=== PATIENT | male | born 1955 | race Caucasian/White ===

== ENCOUNTER 2023-01-15 10:23 | Outpatient (CLI) | payer MEDICARE, SELFPAY ==
[2023-01-15 15:25] LABS: Alanine Aminotransferase 30 U/L (6-50); Albumin Level 4.5 g/dL (3.5-5.1); Alkaline Phosphatase 53 U/L (38-126); Anion Gap 6 mmol/L (8-16); Aspartate Amino Transferase 45 U/L (17-59); Bilirubin,Total 1.3 mg/dL (0.2-1.3); Blood Urea Nitrogen 19 mg/dL (9-20); Calcium 8.9 mg/dL (8.4-10.2); Carbon Dioxide 30 mmol/L (22-30); Chloride 104 mmol/L (98-107); Estimated Glomerular Filt Rate > 60; Glucose 83 mg/dL (65-110); Potassium 3.8 mmol/L (3.4-5.0); Sodium 140 mmol/L (137-145)
== END 2023-01-15 10:24 | disposition home or self-care (01) ==
LOC: ANHGOSHLAB 10:28
PROVIDERS: PCP Family Medicine; Visit Provider Family Medicine
DX: E78.5 Hyperlipidemia, unspecified (principal); I10 Essential (primary) hypertension; Z79.899 Other long term (current) drug therapy
CPT/HCPCS: 36415; 80053

== ENCOUNTER → 2023-06-24 10:19 | Outpatient (CLI) | payer MEDICARE, SELFPAY ==
--- NOTE | ~2023-06-24 | XR_ITS ---
Right Shoulder Technique: AP and axillary views were obtained. Clinical History: Pain Findings: No fracture or dislocation is seen. Osseous alignment is anatomic. The glenohumeral and acr omioclavicular joint spaces are preserved. Soft tissues are unremarkable. Impression: Unremarkable right shoulder radiographs. Reviewed, dictated and finalized at [facility]. ATE BANKER Impression: Unremarkable right shoulder radiographs.
== END ==
PROVIDERS: PCP Family Medicine; Visit Provider Family Medicine
DX: M25.511 Pain in right shoulder (principal); G89.29 Other chronic pain
CPT/HCPCS: 73030

== ENCOUNTER 2024-09-02 11:39 | Outpatient (CLI) | payer MEDICARE, OTHER, SELFPAY ==
--- OUTSIDE RECORDS SUMMARY | 2024-09-02 13:10 | XMS_ITS | Encounter Summary ---
Author Organization [facility] Address [address] [place] [address] Phone Care Team Providers Care Immigration Services Officer Name Role Phone Teodora Grewal MD Primary Care Provider +1- [phone] Encounter Details Date Type Department Care Team (Latest Contact Info) Description 02/26/2023 Orders Only [facility] Scanning, Provider Social History Tobacco Use Types Packs/Day Years Used Date Smoking Tobacco: Never Smokeless Tobacco: Never Alcohol Use Standard Drinks/Week Comments Yes 0 (1 standard drink = 0.6 oz pur e alcohol) rare Sex and Gender Information Value Date Recorded Sex Assigned at Not on file 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 Gender Identity Not on file Sexual Orientation Not on file documented as of this encounter Plan of Treatment Not on file documented as of this encounter Procedures Procedure Name Priority Date/Time Associated Diagnosis Comments SCAN - LABS 02/26/2023 documented in this encounter Results * SCAN - LABS (02/26/2023) us Provider Scanning Final Result documented in this encounter Visit Diagnoses Not on filedocumented in this encounter Care Teams Immigration Services Officer Relationship Specialty Start Date End Date Teodora Grewal MD PCP - General Family Practice 03/17/18 documented as of this encounter
--- OUTSIDE RECORDS SUMMARY | 2024-09-02 13:10 | XMS_ITS | Encounter Summary ---
Author Organization [facility] Address [address] [place] [address] Phone Care Team Providers Care Employment Director Name Role Phone Teodora Grewal MD Primary Care Provider +1- [phone] Encounter Details Date Type Department Care Team (Latest Contact Info) Description 01/16/2023 Orders Only [facility] Scanning, Provider Social History Tobacco Use Types Packs/Day Years Used Date Smoking Tobacco: Never Smokeless Tobacco: Never Alcohol Use Standard Drinks/Week Comments Yes 0 (1 standard drink = 0.6 oz pur e alcohol) rare Sex and Gender Information Value Date Recorded Sex Assigned at Not on file 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
--- OUTSIDE RECORDS SUMMARY | 2024-09-02 13:10 | XMS_ITS | Encounter Summary ---
Author Organization [facility] Address [address] [place] [address] Phone Care Team Providers Care Devulcanizer Operator Name Role Phone Teodora Grewal MD Primary Care Provider +1- [phone] Encounter Details Date Type Department Care Team (Latest Contact Info) Description 04/27/2024 Orders Only [facility] Scanning, Provider Social History Tobacco Use Types Packs/Day Years Used Date Smoking Tobacco: Never Smokeless Tobacco: Never Alcohol Use Standard Drinks/Week Comments Yes 0 (1 standard drink = 0.6 oz pur e alcohol) rare Sex and Gender Information Value Date Recorded Sex Assigned at Not on file 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
--- OUTSIDE RECORDS SUMMARY | 2024-09-02 13:10 | XMS_ITS | Encounter Summary ---
Author Organization [facility] Address [address] [place] [address] Phone Care Team Providers Care Door Slinger Name Role Phone Teodora Grewal MD Primary Care Provider +1- [phone] Encounter Details Date Type Department Care Team (Latest Contact Info) Description 04/27/2020 Orders Only [facility] Scanning, Provider Social History Tobacco Use Types Packs/Day Years Used Date Smoking Tobacco: Never Smokeless Tobacco: Never Alcohol Use Standard Drinks/Week Comments Yes 0 (1 standard drink = 0.6 oz pur e alcohol) rare Sex and Gender Information Value Date Recorded Sex Assigned at Not on file 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
--- OUTSIDE RECORDS SUMMARY | 2024-09-02 13:10 | XMS_ITS | Encounter Summary ---
Author Organization [facility] Address [address] [place] [address] Phone Care Team Providers Care Sql Ssrs Developer Name Role Phone Teodora Grewal MD Primary Care Provider +1- [phone] Encounter Details Date Type Department Care Team (Latest Contact Info) Description 04/06/2020 Orders Only [facility] Scanning, Provider Social History Tobacco Use Types Packs/Day Years Used Date Smoking Tobacco: Never Smokeless Tobacco: Never Alcohol Use Standard Drinks/Week Comments Yes 0 (1 standard drink = 0.6 oz pur e alcohol) rare Sex and Gender Information Value Date Recorded Sex Assigned at Not on file 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
--- OUTSIDE RECORDS SUMMARY | 2024-09-02 13:10 | XMS_ITS | Patient Health Summary ---
Author Organization [facility] Address [address] [place] [address] Care Team Providers Care Truck Dispatcher Name Role Phone Unavailable Primary Care Provider Unavailabl e Note from [facility] [place] [facility] [place]non-owned Affiliates and Associated Physician Practices is amultiple site organization consisting of ambulatory clinics and hospital sitesin [place], [place], [place] and [place]. This disclosure is being madepursuant to the Care Everywhere program and may not contain all information available regarding this patient. Last updated 18.[facility] Social History Tobacco Use Types Packs/Day Years Used Date Smoking Tobacco: Never Assessed Sex and Gender Information Value Date Recorded Sex Assigned at Not on file Gender Identity Not on file Sexual Orientation Not on file Procedures * DERMATOPATHOLOGY(Performed 04/20/2020) Results * DERMATOPATHOLOGY (04/20/2020 12:00 AM CDT) Case Report Dermatopathology Report ? Case: [id number] ? Authorizing Provider: ??Gary Duke MD ?Collected: ? 04/20/2020 12:00 AM ? Ordering Location: ? [facility] ?Received: ?04/21/2020 07:43 AM ? Pathologist: ? Gerardo Byrd MD ? Specimen: ?Skin, right buttock ? 0 8:28 AM [facility]ORY Amended Report Site change from right buttock to right joel anal 0 8:28 AM [facility] DERMATOPATHOLOGY [facility]ORATORY Final Diagnosis Specimen A. SKIN, right joel anal NEVUS LIPOMATOSUS SUPERFICIALIS (D17.30) 0 8:28 AM [facility] DERMATOPATHOLOGY LABORATORY Amendment electronically signed by Gerardo Byrd MD on 05/09/2020 at 8:28 AM Amendment electronically signed by Gerardo Byrd MD on 04/26/2020 at 2:08 PM Clinical History R/O IFEP. 0 8:28 AM [facility] DERMATOPATHOLOGY LABORATORY Gross Description Specimen A: Received is one formalin filled container labeled with the patient's name and designated right joel anal. The specimen consists of a [id number] piece of skin. The specimen is serially sectioned and a industrial sales representative section is submitted in cassettes 1-2. Jar 1. 0 8:28 AM [facility] DERMATOPATHOLOGY LABORATORY Microscopic Description Specimen A. SKIN, right joel anal: There is a gently folded epidermis surrounding a connective tissue core in which fat and collagen are intermingled. 0 8:28 AM [facility] DERMATOPATHOLOGY LABORATORY Disclaimer An external and internal positive and negative controls are appropriate for the histochemical, immunohistochemical and immunofluorescence stain(s) in this case (if any), except where stated explicitly. The performance characteristics of the stain(s) cited in this report were developed and its performance characteristic determined by the Dermatopathology Laboratory at [facility], directed by Dr. Simeon Byrd. These tests need not be, and therefore are not, approved by the [place] Food and Drug Administration. The tests are used for clinical purposes. Billing Codes Specimen Charges Stain Charges 27183 1 0 8:28 AM [facility] DERMATOPATHOLOGY LABORATORY Embedded Images 0 8:28 AM [facility] DERMATOPATHOLOGY LABORATORY Pathology/Cytolog y TISSUE SPECIMEN FROM SKIN / Unknown 04/20/2020 04/21/2020 7:43 AM CDT Gary Duke MD LAB - PATHOLOGY/CYTO LOGY ORDERABLES DERMATOPATHOLOGY LABORATORY [facility] - Department of Dermatology [facility] Medicine [address] [place] [address], [address] [phone]
--- OUTSIDE RECORDS SUMMARY | 2024-09-02 13:10 | XMS_ITS | Encounter Summary ---
Author Organization [facility] Address [address] [place] [address] Phone Care Team Providers Care Proposal Review Analyst Name Role Phone Teodora Grewal MD Primary Care Provider +1- [phone] Encounter Details Date Type Department Care Team (Latest Contact Info) Description 11/23/2019 Orders Only [facility] Scanning, Provider Social History Tobacco Use Types Packs/Day Years Used Date Smoking Tobacco: Never Smokeless Tobacco: Never Alcohol Use Standard Drinks/Week Comments Yes 0 (1 standard drink = 0.6 oz pur e alcohol) rare Sex and Gender Information Value Date Recorded Sex Assigned at Not on file 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 Gender Identity Not on file Sexual Orientation Not on file documented as of this encounter Plan of Treatment Not on file documented as of this encounter Procedures Procedure Name Priority Date/Time Associated Diagnosis Comments SCAN - LABS 11/23/2019 documented in this encounter Results * SCAN - LABS (11/23/2019) us Provider Scanning Final Result documented in this encounter Visit Diagnoses Not on filedocumented in this encounter Care Teams Proposal Review Analyst Relationship Specialty Start Date End Date Teodora Grewal MD PCP - General Family Practice 03/17/18 documented as of this encounter
--- OUTSIDE RECORDS SUMMARY | 2024-09-02 13:10 | XMS_ITS | Encounter Summary ---
Author Organization [facility] Address [address] [place] [address] Phone Care Team Providers Care Business System Consultant Name Role Phone Teodora Grewal MD Primary Care Provider +1- [phone] Encounter Details Date Type Department Care Team (Latest Contact Info) Description 02/24/2023 Orders Only [facility] Scanning, Provider Social History Tobacco Use Types Packs/Day Years Used Date Smoking Tobacco: Never Smokeless Tobacco: Never Alcohol Use Standard Drinks/Week Comments Yes 0 (1 standard drink = 0.6 oz pur e alcohol) rare Sex and Gender Information Value Date Recorded Sex Assigned at Not on file 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 Gender Identity Not on file Sexual Orientation Not on file documented as of this encounter Plan of Treatment Not on file documented as of this encounter Procedures Procedure Name Priority Date/Time Associated Diagnosis Comments SCAN - LABS 02/24/2023 documented in this encounter Results * SCAN - LABS (02/24/2023) us Provider Scanning Final Result documented in this encounter Visit Diagnoses Not on filedocumented in this encounter Care Teams Business System Consultant Relationship Specialty Start Date End Date Teodora Grewal MD PCP - General Family Practice 03/17/18 documented as of this encounter
--- OUTSIDE RECORDS SUMMARY | 2024-09-02 13:10 | XMS_ITS | Encounter Summary ---
Author Organization [facility] Address [address] [place] [address] Care Team Providers Care Security Consultant Name Role Phone Unavailable Primary Care Provider Unavailabl e Encounter Details Date Type Department Care Team (Late st Contact Info) Description 04/21/2020 Lab Requisition [facility] [address] [place] [id number] Gary Duke MD [address] [place] [address] Social History Tobacco Use Types Packs/Day Years Used Date Smoking Tobacco: Never Assessed Sex and Gender Information Value Date Recorded Sex Assigned at Not on file Gender Identity Not on file Sexual Orientation Not on file documented as of this encounter Plan of Treatment Not on file documented as of this encounter Procedures Procedure Name Priority Date/Time Associated Diagnosis Comments DERMATOPATHOLOGY Routine 04/20/2020 12:0 0 AM CDT documented in this encounter Results * DERMATOPATHOLOGY (04/20/2020 12:00 AM CDT) Case Report Dermatopathology Report ? Case: [id number] ? Authorizing Provider: ??Gary Duke MD ?Collected: ? 04/20/2020 12:00 AM ? Ordering Location: ? [facility] ?Received: ?04/21/2020 07:43 AM ? Pathologist: ? Gerardo Byrd MD ? Specimen: ?Skin, right buttock ? 0 8:28 AM [facility] DERMATOPATHOLOGY LABORATORY Amended Report Site change from right buttock to right joel anal 0 8:28 AM [facility] DERMATOPATHOLOGY LABORATORY Final Diagnosis Specimen A. SKIN, right joel anal NEVUS LIPOMATOSUS SUPERFICIALIS (D17.30) 0 8:28 AM [facility] DERMATOPATHOLOGY LABORATORY Amendment electronically signed by Gerardo Byrd MD on 05/09/2020 at 8:28 AM Amendment electronically signed by Gerardo Byrd MD on 04/26/2020 at 2:08 PM Clinical History R/O IFEP. 0 8:28 AM [facility] DERMATOPATHOLOGY LABORATORY Gross Description Specimen A: Received is one formalin filled container labeled with the patient's name and designated right joel anal. The specimen consists of a [id number] piece of skin. The specimen is serially sectioned and a consumer sales representative section is submitted in cassettes 1-2. Jar 1. 0 8:28 AM [facility] DERMATOPATHOLOGY LABORATORY Microscopic Description Specimen A. SKIN, right joel anal: There is a gently folded epidermis surrounding a connective tissue core in which fat and collagen are intermingled. 0 8:28 AM [facility] DERMATOPATHOLOGY LABORATORY Disclaimer An external and internal positive and negative controls are appropriate for the histochemical, immunohistochemical and immunofluorescence stain(s) in this case (if any), except where stated explicitly. The performance characteristics of the stain(s) cited in this report were developed and its performance characteristic determined by the Dermatopathology Laboratory at [facility], directed by Dr. Simeon yBrd. These tests need not be, and therefore are not, approved by the [place] Food and Drug Administration. The tests are used for clinical purposes. Billing Codes Specimen Charges Stain Charges 12543 1 0 8:28 AM [facility] DERMATOPATHOLOGY LABORATORY Embedded Images 0 8:28 AM [facility] DERMATOPATHOLOGY LABORATORY Pathology/Cytolog y TISSUE SPECIMEN FROM SKIN / Unknown 04/20/2020 04/21/2020 7:43 AM CDT Gary Duke MD LAB - PATHOLOGY/CYTO LOGY ORDERABLES DERMATOPATHOLOGY LABORATORY [facility] - Department of Dermatology [address], [address] [phone] documented in this encounter Visit Diagnoses Not on filedocumented in this encounter
--- OUTSIDE RECORDS SUMMARY | 2024-09-02 13:10 | XMS_ITS | Encounter Summary ---
Author Organization [facility] Address [address] [place] [address] Phone Care Team Providers Care Hammersmith Helper Name Role Phone Teodora Grewal MD Primary Care Provider +1- [phone] Encounter Details Date Type Department Care Team (Latest Contact Info) Description 03/02/2020 Orders Only [facility] Scanning, Provider Social History Tobacco Use Types Packs/Day Years Used Date Smoking Tobacco: Never Smokeless Tobacco: Never Alcohol Use Standard Drinks/Week Comments Yes 0 (1 standard drink = 0.6 oz pur e alcohol) rare Sex and Gender Information Value Date Recorded Sex Assigned at Not on file 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
--- OUTSIDE RECORDS SUMMARY | 2024-09-02 13:10 | XMS_ITS | Encounter Summary ---
Author Organization [facility] Address [address] [place] [address] Phone Care Team Providers Care Press Operator Printing Name Role Phone Teodora Grewal MD Primary Care Provider +1- [phone] Encounter Details Date Type Department Care Team (Latest Contact Info) Description 05/16/2020 Orders Only [facility] Scanning, Provider Social History Tobacco Use Types Packs/Day Years Used Date Smoking Tobacco: Never Smokeless Tobacco: Never Alcohol Use Standard Drinks/Week Comments Yes 0 (1 standard drink = 0.6 oz pur e alcohol) rare Sex and Gender Information Value Date Recorded Sex Assigned at Not on file 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 Gender Identity Not on file Sexual Orientation Not on file documented as of this encounter Plan of Treatment Not on file documented as of this encounter Procedures Procedure Name Priority Date/Time Associated Diagnosis Comments SCAN - LABS 05/16/2020 documented in this encounter Results * SCAN - LABS (05/16/2020) us Provider Scanning Final Result documented in this encounter Visit Diagnoses Not on filedocumented in this encounter Care Teams Press Operator Printing Relationship Specialty Start Date End Date Teodora Grewal MD PCP - General Family Practice 03/17/18 documented as of this encounter
--- OUTSIDE RECORDS SUMMARY | 2024-09-02 13:11 | XMS_ITS | Encounter Summary ---
Author Organization [facility] Address [address] [place] [address] Phone Care Team Providers Care Stone Trimmer Name Role Phone Teodora Grewal MD Primary Care Provider +1- [phone] Encounter Details Date Type Department Care Team (Latest Contact Info) Description 03/25/2021 Orders Only [facility] Scanning, Provider Social History Tobacco Use Types Packs/Day Years Used Date Smoking Tobacco: Never Smokeless Tobacco: Never Alcohol Use Standard Drinks/Week Comments Yes 0 (1 standard drink = 0.6 oz pur e alcohol) rare Sex and Gender Information Value Date Recorded Sex Assigned at Not on file 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
--- OUTSIDE RECORDS SUMMARY | 2024-09-02 13:11 | XMS_ITS | Encounter Summary ---
Author Organization [facility] Address [address] [place] [address] Phone Care Team Providers Care Electrician Telephone Name Role Phone Teodora Grewal MD Primary Care Provider +1- [phone] Encounter Details Date Type Department Care Team (Latest Contact Info) Description 12/26/2020 Orders Only [facility] Scanning, Provider Social History Tobacco Use Types Packs/Day Years Used Date Smoking Tobacco: Never Smokeless Tobacco: Never Alcohol Use Standard Drinks/Week Comments Yes 0 (1 standard drink = 0.6 oz pur e alcohol) rare Sex and Gender Information Value Date Recorded Sex Assigned at Not on file 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
--- OUTSIDE RECORDS SUMMARY | 2024-09-02 13:11 | XMS_ITS | Encounter Summary ---
Author Organization [facility] Address [address] [place] [address] Phone Care Team Providers Care Lining Folder Name Role Phone Teodora Grewal MD Primary Care Provider +1- [phone] Encounter Details Date Type Department Care Team (Latest Contact Info) Description 07/27/2020 Orders Only [facility] Scanning, Provider Social History Tobacco Use Types Packs/Day Years Used Date Smoking Tobacco: Never Smokeless Tobacco: Never Alcohol Use Standard Drinks/Week Comments Yes 0 (1 standard drink = 0.6 oz pur e alcohol) rare Sex and Gender Information Value Date Recorded Sex Assigned at Not on file 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
--- OUTSIDE RECORDS SUMMARY | 2024-09-02 13:11 | XMS_ITS | Referral Summary ---
Author Organization [facility] Address [address] [place] [address] Care Team Providers Care Diesel Engine Inspector Name Role Phone Teodora Grewal MD Primary Care Provider +1- [phone] Encounters Date Type Department Care Team Description 08/26/2024 Anticoagulation Visit [address] [address] Beth Gutiérrez, RN 07/30/2024 Anticoagulation Visit [facility] Hematology [address] [place] [address] Geri Mcclendon RN 06/29/2024 Anticoagulation Visit [address] [address] Beth Gutiérrez, RN from Last 3 Months Allergies Active Allergy Reactions Criticality Noted Date Comments Furosemide Other (See comments) Low 03/17/2018 Lowers blood pressure Medications losartan-hydro CHLOROthiazide (HYZAAR) 50-12.5 mg per tablet Take 1 tablet by mouth daily Active rosuvastatin (CRESTOR) 20 mg tablet Take 1 tablet (20 mg total) by mouth daily with dinner Active aspirin 81 mg enteric coated tablet Take 1 tablet (81 mg total) by mouth daily with dinner Active calcium carbonate-vlad min D3 1,250mg (500mg elemental) - 200 units per tablet Take 2 tablets by mouth daily with dinner Active multivitamin tabletIndicati ons:Vitamin Deficiency Prevention Take 1 tablet by mouth daily Active sildenafiL (VIAGRA) 50 mg tablet Take 1 tablet (50 mg total) by mouth as needed 03/03/20 24 Active warfarin (Jantoven) 5 mg tablet TAKE 1 TABLET (=5MG) SATURDAYTHROUGH SATURDAY, AND TAKE 1 AND 1/2 TABLETS (=7.5MG) ON SATURDAY AND SATURDAY 135 tablet 2 08/28/19 25 Active warfarin (Jantoven) 5 mg tablet TAKE 1 TABLET (=5MG) SATURDAYTHROUGH SATURDAY, AND TAKE 1 AND 1/2 TABLETS (=7.5MG) ON SATURDAY AND SATURDAY 45 tablet 5 05/25/20 24 025 Discontin ued(Reord er) Active Problems Problem Noted Date Diagnosed Date Deep vein thrombosis (DVT) of proximal lower ext remity 05/27/2024 Warfarin anticoagulation 05/27/2024 Presence of IVC filter 05/27/2024 Sprain of left rotator cuff capsule 08/25/2019 Overview (08/25/2019): Added automatically from request for surgery [id number] Lateral knee pain, right 03/13/2018 DVT (deep venous thrombosis) (CMS/HCC) 7 Arthralgia of hip 08/07/2016 Pulmonary embolism 03/05/2014 Osteoarthritis of knee 09/19/2011 Immunizations Name Administration Dates Next Due Pfizer SARS-CoV-2 Monovalent Vaccination (12+ Yrs) PURPLE 05/30/2021 Tdap 11/28/2017 Social History Tobacco Use Types Packs/Day Years Used Date Smoking Tobacco: Never Smokeless Tobacco: Never Alcohol Use Standard Drinks/Week Comments Yes 0 (1 standard drink = 0.6 oz pur e alcohol) rare Sex and Gender Information Value Date Recorded Sex Assigned at Not on file 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 Gender Identity Not on file Sexual Orientation Not on file Last Filed Vital Signs Vital Sign Reading Time Taken Comments Blood Pressure 131/72 05/27/2024 10:00 AM CDT Pulse 63 05/27/2024 10:00 AM CDT Temperature 36.1 ??C (96.9 ??F) 05/27/2024 10:00 AM C DT Respiratory Rate 18 05/27/2024 10:00 AM CDT Oxygen Saturation 97% 05/27/2024 10:00 AM CDT Inhaled Oxygen Concentration - - Weight 106.6 kg (235 lb) 05/27/2024 10:00 AM CDT Height 176.1 cm (5' 9.33 ) 05/29/2023 9:17 AM CD T Body Mass Index 34.37 05/29/2023 9:17 AM CDT Plan of Treatment Not on file Medical Devices Implanted Type Area Dental Laboratory Technology Teacher Device Identifier Shelf Expiration Date Model / Serial / Lot [employer] [id number] Corkscrew Tigertail 5.5mm 14.7mm Drive Mechanism Vent 2 Square - [id number] Implanted:Qty: 1 on 09/08/2019 by Mario Kenyon MD at [facility] [employer] 10/26/2020 AR-1927BC FT / / [id number] Procedures Procedure Name Priority Date/Time Associated Diagnosis Comments PROTIME-INR Routine 08/25/2024 PROTIME-INR Routine 07/27/2024 PROTIME-INR Routine 06/27/2024 from Last 3 Months Results * (ABNORMAL) Protime-INR (08/25/2024) INR 3.10(A) 0.90 - 1.10 EXTERNAL LAB Blood Result [facility] Historical Provider LAB BLOOD ORDERABLES Annamarie l Result EXTERNAL LAB * (ABNORMAL) Protime-INR (07/27/2024) INR 2.60(A) 0.90 - 1.10 EXTERNAL LAB Blood Result [facility] Historical Provider LAB BLOOD ORDERABLES Annamarie l Result EXTERNAL LAB * (ABNORMAL) Protime-INR (06/27/2024) INR 3.10(A) 0.90 - 1.10 EXTERNAL LAB Blood Historical Provider LAB BLOOD ORDERABLES Annamarie l Result EXTERNAL LAB from Last 3 Months Insurance [facility] [employer] Address: [facility] [id number] [place] [address] [facility] MEDICARE AETNA SENIOR SUPPLEMENT AET SENIOR [facility] MEDICARE [facility] Advance Directives For more information, please contact: [phone] * Full Code (Latest Code Status on File) Date Activated Date Inactivated Comments 09/08/2019 5:14 PM 09/09/2019 5:32 PM Healthcare Agents on File Name Relationship Healthcare Agent Relationshi p Communication Maribel Schwartz Spouse First Alternate Health Care Agent Care Teams Diesel Engine Inspector Relationship Specialty Start Date End Date Teodora Grewal MD PCP - General Family Practice 03/17/18
--- OUTSIDE RECORDS SUMMARY | 2024-09-02 13:11 | XMS_ITS | Clinical Summary ---
Author Organization [facility] Address [address] [place] [address] Care Team Providers Care Scientologist Name Role Phone Teodora Grewal MD Primary Care Provider +1- [phone] Allergies Active Allergy Reactions Criticality Noted Date [...] (08/25/2019): Added automatically from request for surgery [id number] Lateral knee pain, right 03/13/2018 DVT (deep venous thrombosis) (CMS/HCC) 7 Arthralgia of hip 08/07/2016 Pulmonary embolism 03/05/2014 Osteoarthritis of knee 09/19/2011 Encounters Date Type Department Care Team Description 08/26/2024 Anticoagulation Visit [facility] Hematology [address] [place] [address] [address] [place] [address] Beth Gutiérrez, RN 07/30/2024 Anticoagulation Visit [facility] Hematology [address] [place] [address] 6 [place] [id number] Geri Mcclendon RN 06/29/2024 Anticoagulation Visit [facility] Hematology [address] [place] [address] 6 [place] [id number] Beth Gutiérrez, RN from Last 3 Months Immunizations Name Administration Dates Next Due Pfizer SARS-CoV-2 Monovalent Vaccination (12+ Yrs) PURPLE 05/30/2021 Tdap 11/28/2017 Surgical History Surgery Date Site/Laterality Comments KNEE SURGERY Bilateral left knee x 2, right knee x 1 CARPAL TUNNEL RELEASE Right KNEE ARTHROSCOPY INSERT VENA CAVA FILTER Medical History Medical History Date Comments Anxiety Arthritis Deep vein thrombosis (CMS/HCC) (HCC) Depression Sprain of left rotator cuff capsule Pulmonary embolism (HCC) Hypertension Family History Medical History Relation Name Comments Alcohol abuse Father Cerebral aneurysm Mother Family his tory of cerebral aneurysm - (Added by TW Conv) Relation Name Status Comments Father Mother Social History Tobacco Use Types Packs/Day Years Used Date Smoking Tobacco: Never Smokeless Tobacco: Never Alcohol Use Standard Drinks/Week Comments Yes 0 (1 standard drink = 0.6 oz pur e alcohol) rare Sex and Gender Information Value Date Recorded Sex Assigned at Not on file 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 Gender Identity Not on file Sexual Orientation Not on file Obstetrics History Last Filed Vital Signs Vital Sign Reading [...] 05/29/2023 9:17 AM CDT Plan of Treatment Health Maintenance Due Date Last Done Comments Colon Cancer Screening-Colonoscopy 1955 Depression Screening 1955 Fall Risk Assessment 1955 Hepatitis C Screening 1955 Prostate Cancer Screening-PSA 1955 Hepatitis B Screening 10/04/1973 Zoster Vaccine (1 of 2) 10/04/2005 Pneumococcal vaccine 65+ (1 of 1 - PCV) 10/04/2020 Well Visit 65+ 10/04/2020 Covid-19 Vaccine ( - season) 2024 05/30/2021, 08/08/2020, 07/19/2020 Influenza Vaccine (#1) 2024 DTaP/Tdap/Td Vaccine (2 - Td or Tdap) 11/29/202709/2017 Medical Devices Implanted Type Area Tool/Die Maker Device Identifier Shelf Expiration Date Model / Serial / Lot [employer] [id number] Corkscrew Tigertail 5.5mm 14.7[address] Drive Mechanism Vent 2 Square - [id number] Implanted:Qty: 1 on 09/08/2019 by Mario Kenyon MD at [facility] [employer] 10/26/2020 AR-1927BC FT / / [id number] Procedures Procedure Name Priority Date/Time Associated Diagnosis Comments PROTIME-INR Routine 08/25/2024 PROTIME-INR Routine 07/27/2024 PROTIME-INR Routine 06/27/2024 from Last 3 Months Results * (ABNORMAL) Protime-INR (08/25/2024) INR 3.10(A) 0.90 - 1.10 EXTERNAL LAB Blood Historical Provider MD LAB BLOOD ORDERABLES Annamarie l Result Performing Organization Address City/[facility]/ZIP Co de Phone Number EXTERNAL LAB * (ABNORMAL) Protime-INR (07/27/2024) INR 2.60(A) 0.90 - 1.10 EXTERNAL LAB Blood [facility] Provider MD LAB BLOOD ORDERABLES Annamarie l Result Performing Organization Address City/[facility]/ZIP Co de Phone Number EXTERNAL LAB * (ABNORMAL) Protime-INR (06/27/2024) INR 3.10(A) 0.90 - 1.10 EXTERNAL LAB Blood [facility] Provider MD LAB BLOOD ORDERABLES Annamarie l Result Performing Organization Address City/[facility] Co de Phone Number EXTERNAL LAB from Last 3 Months Insurance [facility] EMPL[employer]EE HEALTH PLANS Address: [facility] [id number] [place] [address] [facility] ACCESS MEDICARE AET SENIOR SUPPLEMENT T SENIOR SUPPLEMENT MEDICARE [facility] Advance Directives For more information, please contact: [phone] * Full Code (Latest Code Status on File) Date Activated Date Inactivated Comments 09/08/2019 5:14 PM 09/09/2019 5:32 PM Healthcare Agents on File Name Relationship Healthcare Agent [facility] Communication Maribel Schwartz Spouse First Alternate Health Care Agent Care Teams Scientologist Relationship Specialty Start Date End Date Teodora Grewal MD PCP - General Family Practice 03/17/18
--- OUTSIDE RECORDS SUMMARY | 2024-09-02 13:11 | XMS_ITS | Encounter Summary ---
Author Organization [facility] Address [address] [place] [address] Phone Care Team Providers Care Retail Wireless Sales Consultant Name Role Phone Teodora Grewal MD Primary Care Provider +1- [phone] Encounter Details Date Type Department Care Team (Latest Contact Info) Description 06/05/2020 Orders Only [facility] Scanning, Provider Social History Tobacco Use Types Packs/Day Years Used Date Smoking Tobacco: Never Smokeless Tobacco: Never Alcohol Use Standard Drinks/Week Comments Yes 0 (1 standard drink = 0.6 oz pur e alcohol) rare Sex and Gender Information Value Date Recorded Sex Assigned at Not on file Legal Sex Male 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 Gender Identity Not on file Sexual Orientation Not on file documented as of this encounter Plan of Treatment Not on file documented as of this encounter Procedures Procedure Name Priority Date/Time Associated Diagnosis Comments SCAN - LABS 06/05/2020 documented in this encounter Results * SCAN - LABS (06/05/2020) us Provider Scanning Final Result documented in this encounter Visit Diagnoses Not on filedocumented in this encounter Care Teams Retail Wireless Sales Consultant Relationship Specialty Start Date End Date Teodora Grewal MD PCP - General Family Practice 03/17/18 documented as of this encounter
--- OUTSIDE RECORDS SUMMARY | 2024-09-02 13:11 | XMS_ITS | Clinical Summary ---
Author Organization [facility] Address [address] [place] [address] Care Team Providers Care Teletypesetter Operator Name Role Phone Unavailable Primary Care Provider Unavailabl e Source Comments [facility],non-owned Affiliates and Associated Physician Practices is amultiple site organization consisting of ambulatory clinics and hospital sitesin [place], [place], [place] and [place]. This disclosure is being madepursuant to the Care Everywhere program and may not contain all information available regarding this patient. Last updated 18.[facility] Jiberish Social History Tobacco Use Types Packs/Day Years Used Date Smoking Tobacco: Never Assessed Sex and Gender Information Value Date Recorded Sex Assigned at Not on file Gender Identity Not on file Sexual Orientation Not on file Plan of Treatment Health Maintenance Due Date Last Done Comments COLOGUARD (AGES 45-75) - COL ON CA SCREENING 1955 COLON MONITORING 1955 COLONOSCOPY - COLON CA SCREENING 1955 CT COLONOGRAPHY - COLON CA SCREENING 1955 Colorectal Cancer Screening 1955 FIT - COLON CA SCREENING 1955 FLEX SIG - COLON CA SCREENING 1955 LIPID TESTING 1955 HEPATITIS C SCREENING 09/30/1973 DTAP/TDAP/TD VACCINES (1 - Tdap) 10/04/1974 PNEUMOCOCCAL VACCINE 50+ (1 of 1 - PCV) 10/04/2005 ZOSTER VACCINE (1 of 2) 10/04/2005 COVID-19 VACCINE ( - 2023-2 5 season) 2024 INFLUENZA VACCINE (#1) 2024 DEPRESSION SCREENING 07/29/2024 Respiratory Syncytial Virus (RSV) Vaccine Pt: or over 60 yrs (1 - 1-dose 75+ series) 10/04/2030 HEPATITIS B VACCINE Aged Out No longe r eligible based on patient's age to complete this topic HIB VACCINE Aged Out No longer eligi ble based on patient's age to complete this topic HPV VACCINE Aged Out No longer eligi ble based on patient's age to complete this topic MENINGOCOCCAL (Group B) VACCINE Aged Out No longer eligible based on patient's age to complete this topic MENINGOCOCCAL VACCINE Aged Out No cori rodger eligible based on patient's age to complete this topic
--- OUTSIDE RECORDS SUMMARY | 2024-09-02 13:11 | XMS_ITS | Encounter Summary ---
Author Organization [facility] Address [address] [place] [address] Phone Care Team Providers Care Conical Mixer Name Role Phone Teodora Grewal MD Primary Care Provider +1- [phone] Encounter Details Date Type Department Care Team (Latest Contact Info) Description 05/04/2021 Orders Only [facility] Scanning, Provider Social History Tobacco Use Types Packs/Day Years Used Date Smoking Tobacco: Never Smokeless Tobacco: Never Alcohol Use Standard Drinks/Week Comments Yes 0 (1 standard drink = 0.6 oz pur e alcohol) rare Sex and Gender Information Value Date Recorded Sex Assigned at Not on file 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
--- OUTSIDE RECORDS SUMMARY | 2024-09-02 13:11 | XMS_ITS | CONTINUITY OF CARE DOCUMENT ---
Author Name diamond fields Address Unknown Organization [facility] Address [address] [place] [address] [address] [place] [address] Phone [phone] Care Team Providers Care Auto Dealership Porter Name Role Phone [facility] Unavailable Unavailable
--- OUTSIDE RECORDS SUMMARY | 2024-09-02 13:11 | XMS_ITS | Encounter Summary ---
Author Organization [facility] Address [address] [place] [address] Phone Care Team Providers Care Weld Lay Out Worker Name Role Phone Teodora Grewal MD Primary Care Provider +1- [phone] Encounter Details Date Type Department Care Team (Latest Contact Info) Description 01/06/2021 Orders Only [facility] Scanning, Provider Social History Tobacco Use Types Packs/Day Years Used Date Smoking Tobacco: Never Smokeless Tobacco: Never Alcohol Use Standard Drinks/Week Comments Yes 0 (1 standard drink = 0.6 oz pur e alcohol) rare Sex and Gender Information Value Date Recorded Sex Assigned at Not on file Legal Sex Male 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
--- OUTSIDE RECORDS SUMMARY | 2024-09-02 13:11 | XMS_ITS | Encounter Summary ---
Author Organization [facility] Address [address] [place] [address] Phone Care Team Providers Care Delinquent Tax Collector Name Role Phone Teodora Grewal MD Primary Care Provider +1- [phone] Encounter Details Date Type Department Care Team (Latest Contact Info) Description 09/14/2021 Orders Only [facility] Scanning, Provider Social History Tobacco Use Types Packs/Day Years Used Date Smoking Tobacco: Never Smokeless Tobacco: Never Alcohol Use Standard Drinks/Week Comments Yes 0 (1 standard drink = 0.6 oz pur e alcohol) rare Sex and Gender Information Value Date Recorded Sex Assigned at Not on file Legal Sex Male 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 Gender Identity Not on file Sexual Orientation Not on file documented as of this encounter Plan of Treatment Not on file documented as of this encounter Procedures Procedure Name Priority Date/Time Associated Diagnosis Comments SCAN - LABS 09/14/2021 documented in this encounter Results * SCAN - LABS (09/14/2021) us Provider Scanning Final Result documented in this encounter Visit Diagnoses Not on filedocumented in this encounter Care Teams Delinquent Tax Collector Relationship Specialty Start Date End Date Teodora Grewal MD PCP - General Family Practice 03/17/18 documented as of this encounter
--- OUTSIDE RECORDS SUMMARY | 2024-09-02 13:11 | XMS_ITS | Encounter Summary ---
Author Organization [facility] Address [address] [place] [address] Phone Care Team Providers Care Personal Banking Representative Name Role Phone Teodora Grewal MD Primary Care Provider +1- [phone] Encounter Details Date Type Department Care Team (Latest Contact Info) Description 07/15/2022 Orders Only [facility] Scanning, Provider Social History Tobacco Use Types Packs/Day Years Used Date Smoking Tobacco: Never Smokeless Tobacco: Never Alcohol Use Standard Drinks/Week Comments Yes 0 (1 standard drink = 0.6 oz pur e alcohol) rare Sex and Gender Information Value Date Recorded Sex Assigned at Not on file 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 Gender Identity Not on file Sexual Orientation Not on file documented as of this encounter Plan of Treatment Not on file documented as of this encounter Procedures Procedure Name Priority Date/Time Associated Diagnosis Comments SCAN - LABS 07/15/2022 documented in this encounter Results * SCAN - LABS (07/15/2022) us Provider Scanning Final Result documented in this encounter Visit Diagnoses Not on filedocumented in this encounter Care Teams Personal Banking Representative Relationship Specialty Start Date End Date Teodora Grewal MD PCP - General Family Practice 03/17/18 documented as of this encounter
--- OUTSIDE RECORDS SUMMARY | 2024-09-02 13:11 | XMS_ITS | Continuity of Care Document ---
Author Organization [facility] Address [address] [place] [address] Phone Care Team Providers Care Health And Safety Coordinator Name Role Phone Mario Kenyon MD Unavailable Unavailable Allergies, Adverse Reactions, Alerts Substance Reaction Status Criticality No Known Allergies Active No Inform ation Medications Medication Instructions Dosage Effective Dates (start - stop) Status Comments Coumadin 7.5 mg tablet - Active Aspir-81 81 mg tablet,delayed release - Active Calcium 500 500 mg calcium (1,250 mg) tablet - Active Procedures Procedure Date Special Narrative Report Special Narrative Report Rating Letter Office/outpatient visit,est, mod 2019 Supplemental Report Office/outpatient visit,est, mod 2019 Supplemental Report Global/Postop followup visit Supplemental Report Global/Postop followup visit Supplemental Report Global/Postop followup visit Supplemental Report Global/Postop followup visit Supplemental Report Office/outpatient visit,est, mod 2019 Supplemental Report Office/outpatient visit,est, mod 2018 Supplemental Report Office consultation, moderate 9 Advance Directives Directive Yes / No Effective Date File Name No Information Encounters Encounter Description Practice Location Reason(s) For Visit Diagnoses Date Provider Providers Copied on Encounter [facility], [address], [place], [place], [id number], [place] [phone] [facility] No Information 0 Chantale Martin. [address] [address], [place], [place], [id number] , [place]. tel: [phone] [facility], [address] [address], [place], [place], [id number], [place] tel:[phone] [facility] No Information 0 Chantale Martin. [address], [facility] [facility] [address], [place], [place], [id number] , [place]. tel: [phone] Rating Letter [facility], [address] [address], [place], [place], [id number], [place] [phone] [facility] No Information 0 Chantale Martin. [address] [address], [place], [place], [id number] , [place]. tel: [phone] Office/outpat ient visit,est, mod [facility], [address] [address], [place], [place], [id number], [place] [phone] [facility] Left shoulder (chief complaint) Sprain of left rotator cuff capsule, sequela 0 Chantale Martin. [address], [address] [address], [place], [place], [id number] , [place]. tel: [phone] Office/outpat ient visit,est, [facility], [address] [address], [place], [place], [id number], [place] [phone] [facility] Left shoulder (chief complaint) Sprain of left rotator cuff capsule, sequela 0 Chantale Martin. [address] [facility] [address], [facility] [address], [place], [place], [id number] , [place]. tel: [phone] [facility], [address] [place] [address], [id number], [place] tel:[phone] [facility] Left shoulder (chief complaint) Sprain of left rotator cuff capsule, sequela 0 Chantale Martin. [address], [address] [address], [place], [place], [id number] , [place]. tel: [phone] [facility], [address] [address], [place], [place], [id number], [place] tel:[phone] [facility] left shoulder (chief complaint) Sprain of left rotator cuff capsule, sequela 0 Chantale Martin. [address] [facility] [address], [address] [address], [place], [place], [id number] , [place]. tel: [phone] [employer] [facility], [address] [address], [place], [place], [id number], [place] tel:[phone] [facility] left shoulder (chief complaint) Sprain of left rotator cuff capsule, sequela 0 Chantale Martin. [address] [facility] [address], [address] [address], [place], [place], [id number] , [place]. tel: [phone] [employer] [facility], [address], [id number], [place] tel:[phone] [facility] Left shoulder (chief complaint) Sprain of left rotator cuff capsule, sequela 0 Chantale Martin. [address], [id number] , [place]. tel: [phone] [facility], [address], [id number], [place] tel:[phone] [facility] Sprain of left rotator cuff capsule, initial encounter 0 Chantale Martin. [address] [facility], [address] [address], [place], [place], [id number] , [place]. tel: [phone] Office/outpat ient visit,est, mod [facility], [address], [id number], [place] tel:[phone] [facility] Left shoulder (chief complaint) Sprain of left rotator cuff capsule, initial encounter 0 Chantale Martin. [address], [place], [place], [id number] , [place]. tel:[phone] Office/outpat ient visit,est, mod [facility], [address], [place], [place], [id number], [phone] [facility] Left shoulder (chief complaint) Sprain of left rotator cuff capsule, initial encounter 9 Chantale Martin. [address] [facility], [address] [facility], [place], [place], [id number] , [place]. tel:[phone] Office consultation, moderate [facility], [address], [id number], [phone] [facility] Left Shoulder Pain (chief complaint) Sprain of left rotator cuff capsule, initial encounter 9 Chantale Martin. [address] [facility], [address], [place], [place], [id number] , [place]. tel:[phone] Referring Provider: Mario Mauricio, [address], [place], [address] . tel:[phone] Family History Family Member Type Diagnosis Age At Onset Father Problem (finding) Alcoholism Mother Problem (finding) Stroke Sister Problem (finding) Alcoholism Payers Payer name Insurance type Covered alliance party ID [id number] azckary(s) [facility] Workers Compensation Adm [id number] Social History Type Description Quantity Date Captured Comments Sex Male Smoking Status No Information Chief Complaint And Reason For Visit No Information Reason For Referral Reason For Referral No Information History Of Present Illness Encounter Date Complaint History Of Prese nt Illness Left shoulder Patient comes in today for follow up of his left shoulder Left shoulder Patient comes in today for follow up of his left shoulder Left shoulder Patient comes in today for follow up of his left shoulder arthroscopy left shoulder César returns to the office today for his left shoulder. left shoulder César comes in th e office today for his left shoulder. Left shoulder Patient comes in today for follow up of his left shoulder arthroscopy Left shoulder Patient comes in today for follow up of his left shoulder Left shoulder Patient comes in today for follow up of his left shoulder Left Shoulder Pain Location: lef t shoulder. Additional information: Patient comes in today for left shoulder pain. Functional Status Date Functional Assessmen t No Information Instructions Date Instruction Additional Infor mation No Information Assessments Type Assessment Date No Information Patient Care Teams Name Effective Dates (start - stop) Status Members No Information
--- OUTSIDE RECORDS SUMMARY | 2024-09-02 13:11 | XMS_ITS | Referral Summary ---
Author Organization [facility] Address [address] [place] [address] Care Team Providers Care Pilling Machine Operator Name Role Phone Unavailable Primary Care Provider Unavailabl e Source Comments [facility],non-owned Affiliates and Associated Physician Practices is amultiple site organization consisting of ambulatory clinics and hospital sitesin [place], [place], [place] and [place]. This disclosure is being madepursuant to the Care Everywhere program and may not contain all information available regarding this patient. Last updated 18.[facility] Social History Tobacco Use Types Packs/Day Years Used Date Smoking Tobacco: Never Assessed Sex and Gender Information Value Date Recorded Sex Assigned at Not on file Gender Identity Not on file Sexual Orientation Not on file Plan of Treatment Not on file
--- OUTSIDE RECORDS SUMMARY | 2024-09-02 13:11 | XMS_ITS | Encounter Summary ---
Author Organization [facility] Address [address] [place] [address] Phone Care Team Providers Care Professional Wrestler Name Role Phone Teodora Grewal MD Primary Care Provider [phone]- [phone] Encounter Details Date Type Department Care Team (Latest Contact Info) Description 11/14/2020 Orders Only [facility] Scanning, Provider Social History Tobacco Use Types Packs/Day Years Used Date Smoking Tobacco: Never Smokeless Tobacco: Never Alcohol Use Standard Drinks/Week Comments Yes 0 (1 standard drink = 0.6 oz pur e alcohol) rare Sex and Gender Information Value Date Recorded Sex Assigned at Not on file 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
--- OUTSIDE RECORDS SUMMARY | 2024-09-02 13:11 | XMS_ITS | Encounter Summary ---
Author Organization [facility] Address [address] [place] [address] Phone Care Team Providers Care Marine Engineering Professor Name Role Phone Teodora Grewal MD Primary Care Provider [phone]- [phone] Encounter Details Date Type Department Care Team (Latest Contact Info) Description 10/12/2020 Orders Only [facility] Scanning, Provider Social History Tobacco Use Types Packs/Day Years Used Date Smoking Tobacco: Never Smokeless Tobacco: Never Alcohol Use Standard Drinks/Week Comments Yes 0 (1 standard drink = 0.6 oz pur e alcohol) rare Sex and Gender Information Value Date Recorded Sex Assigned at Not on file 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 Gender Identity Not on file Sexual Orientation Not on file documented as of this encounter Plan of Treatment Not on file documented as of this encounter Procedures Procedure Name Priority Date/Time Associated Diagnosis Comments SCAN - LABS 10/12/2020 documented in this encounter Results * SCAN - LABS (10/12/2020) us Provider Scanning Final Result documented in this encounter Visit Diagnoses Not on filedocumented in this encounter Care Teams Marine Engineering Professor Relationship Specialty Start Date End Date Teodora Grewal MD PCP - General Family Practice 03/17/18 documented as of this encounter
--- OUTSIDE RECORDS SUMMARY | 2024-09-02 13:11 | XMS_ITS | Encounter Summary ---
Author Organization [facility] Address [address] [place] [address] Phone Care Team Providers Care Physiotherapy Practice Manager Name Role Phone Teodora Grewal MD Primary Care Provider [phone]- [phone] Encounter Details Date Type Department Care Team (Latest Contact Info) Description 11/17/2018 Orders Only [facility] Scanning, Provider Social History Tobacco Use Types Packs/Day Years Used Date Smoking Tobacco: Never Smokeless Tobacco: Never Alcohol Use Standard Drinks/Week Comments Yes 0 (1 standard drink = 0.6 oz pur e alcohol) Sex and Gender Information Value Date Recorded Sex Assigned at Not on file 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 Gender Identity Not on file Sexual Orientation Not on file documented as of this encounter Plan of Treatment Not on file documented as of this encounter Procedures Procedure Name Priority Date/Time Associated Diagnosis Comments SCAN - LABS 11/17/2018 documented in this encounter Results * SCAN - LABS (11/17/2018) us Provider Scanning Final Result documented in this encounter Visit Diagnoses Not on filedocumented in this encounter Care Teams Physiotherapy Practice Manager Relationship Specialty Start Date End Date Teodora Grewal MD PCP - General Family Practice 03/17/18 documented as of this encounter
--- OUTSIDE RECORDS SUMMARY | 2024-09-02 13:11 | XMS_ITS | Encounter Summary ---
Author Organization [facility] Address [address] [place] [address] Phone Care Team Providers Care Admission Nurse Coordinator Name Role Phone Teodora Grewal MD Primary Care Provider [phone]- [phone] Encounter Details Date Type Department Care Team (Latest Contact Info) Description 09/20/2020 Orders Only [facility] Scanning, Provider Social History Tobacco Use Types Packs/Day Years Used Date Smoking Tobacco: Never Smokeless Tobacco: Never Alcohol Use Standard Drinks/Week Comments Yes 0 (1 standard drink = 0.6 oz pur e alcohol) rare Sex and Gender Information Value Date Recorded Sex Assigned at Not on file 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 Gender Identity Not on file Sexual Orientation Not on file documented as of this encounter Plan of Treatment Not on file documented as of this encounter Procedures Procedure Name Priority Date/Time Associated Diagnosis Comments SCAN - LABS 09/20/2020 documented in this encounter Results * SCAN - LABS (09/20/2020) us Provider Scanning Final Result documented in this encounter Visit Diagnoses Not on filedocumented in this encounter Care Teams Admission Nurse Coordinator Relationship Specialty Start Date End Date Teodora Grewal MD PCP - General Family Practice 03/17/18 documented as of this encounter
--- OUTSIDE RECORDS SUMMARY | 2024-09-02 13:11 | XMS_ITS | Encounter Summary ---
Author Organization [facility] Address [address] [place] [address] Phone Care Team Providers Care Faculty Research Assistant Name Role Phone Teodora Grewal MD Primary Care Provider +1- [phone] Encounter Details Date Type Department Care Team (Latest Contact Info) Description 08/24/2020 Orders Only [facility] Scanning, Provider Social History Tobacco Use Types Packs/Day Years Used Date Smoking Tobacco: Never Smokeless Tobacco: Never Alcohol Use Standard Drinks/Week Comments Yes 0 (1 standard drink = 0.6 oz pur e alcohol) rare Sex and Gender Information Value Date Recorded Sex Assigned at Not on file Legal Sex Male 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 FAMILY SUPPORT COORDINATOR Gender Identity Not on file Sexual Orientation Not on file documented as of this encounter Plan of Treatment Not on file documented as of this encounter Procedures Procedure Name Priority Date/Time Associated Diagnosis Comments SCAN - LABS 08/24/2020 documented in this encounter Results * SCAN - LABS (08/24/2020) us Provider Scanning Final Result documented in this encounter Visit Diagnoses Not on filedocumented in this encounter Care Teams Faculty Research Assistant Relationship Specialty Start Date End Date Teodora Grewal MD PCP - General Family Practice 03/17/18 documented as of this encounter
--- OUTSIDE RECORDS SUMMARY | 2024-09-02 13:11 | XMS_ITS | Encounter Summary ---
Author Organization [facility] Address [address] [place] [address] Phone Care Team Providers Care Statistical Developer Name Role Phone Teodora Grewal MD Primary Care Provider +1- [phone] Encounter Details Date Type Department Care Team (Latest Contact Info) Description 02/28/2022 Orders Only [facility] Scanning, Provider Social History Tobacco Use Types Packs/Day Years Used Date Smoking Tobacco: Never Smokeless Tobacco: Never Alcohol Use Standard Drinks/Week Comments Yes 0 (1 standard drink = 0.6 oz pur e alcohol) rare Sex and Gender Information Value Date Recorded Sex Assigned at Not on file 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
--- OUTSIDE RECORDS SUMMARY | 2024-09-02 13:11 | XMS_ITS | Encounter Summary ---
Author Organization [facility] Address [address] [place] [address] Phone Care Team Providers Care Lock And Dam Repairer Name Role Phone Teodora Grewal MD Primary Care Provider +1- [phone] Encounter Details Date Type Department Care Team (Latest Contact Info) Description 12/24/2022 Orders Only [facility] Scanning, Provider Social History Tobacco Use Types Packs/Day Years Used Date Smoking Tobacco: Never Smokeless Tobacco: Never Alcohol Use Standard Drinks/Week Comments Yes 0 (1 standard drink = 0.6 oz pur e alcohol) rare Sex and Gender Information Value Date Recorded Sex Assigned at Not on file 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
--- OUTSIDE RECORDS SUMMARY | 2024-09-02 13:11 | XMS_ITS | Encounter Summary ---
Author Organization [facility] Address [address] [place] [address] Phone Care Team Providers Care Galley Hand Name Role Phone Teodora Grewal MD Primary Care Provider +1- [phone] Encounter Details Date Type Department Care Team (Latest Contact Info) Description 01/14/2021 Orders Only [facility] Scanning, Provider Social History Tobacco Use Types Packs/Day Years Used Date Smoking Tobacco: Never Smokeless Tobacco: Never Alcohol Use Standard Drinks/Week Comments Yes 0 (1 standard drink = 0.6 oz pur e alcohol) rare Sex and Gender Information Value Date Recorded Sex Assigned at Not on file 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
--- OUTSIDE RECORDS SUMMARY | 2024-09-02 13:11 | XMS_ITS | Encounter Summary ---
Author Organization [facility] Address [address] [place] [address] Phone Care Team Providers Care Curb Setter Helper Name Role Phone Teodora Grewal MD Primary Care Provider +1- [phone] Encounter Details Date Type Department Care Team (Latest Contact Info) Description 07/18/2020 Orders Only [facility] Scanning, Provider Social History Tobacco Use Types Packs/Day Years Used Date Smoking Tobacco: Never Smokeless Tobacco: Never Alcohol Use Standard Drinks/Week Comments Yes 0 (1 standard drink = 0.6 oz pur e alcohol) rare Sex and Gender Information Value Date Recorded Sex Assigned at Not on file 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
[2024-09-02 16:35] LABS: Alanine Aminotransferase 31 U/L (6-50); Albumin Level 4.3 g/dL (3.5-5.1); Alkaline Phosphatase 56 U/L (38-126); Anion Gap 10 mmol/L (4-12); Aspartate Amino Transferase 55 U/L (17-59); Bilirubin,Total 1.7 mg/dL (0.2-1.3); Blood Urea Nitrogen 29 mg/dL (9-20); Calcium 10.2 mg/dL (8.4-10.2); Carbon Dioxide 29 mmol/L (22-30); Chloride 102 mmol/L (98-107); Cholesterol 136 mg/dL (0-200); Estimated Glomerular Filt Rate > 60; Glucose 97 mg/dL (65-110); HDL Direct 35 mg/dL; Potassium 4.5 mmol/L (3.4-5.0); Sodium 141 mmol/L (137-145); Triglycerides 183 mg/dL (<150)
[2024-09-02 16:46] LABS: LDL Cholesterol Direct 58 mg/dL
== END 2024-09-02 11:40 | disposition home or self-care (01) ==
LOC: ANHGOSHLAB 11:40
PROVIDERS: PCP Family Medicine; Visit Provider Nurse Practitioner Family
DX: E78.5 Hyperlipidemia, unspecified (principal); I10 Essential (primary) hypertension
CPT/HCPCS: 36415; 80053; 80061

== ENCOUNTER 2024-09-07 11:15 | Emergency (ER) | payer MEDICARE, OTHER, SELFPAY ==
[2024-09-07 11:27] VITALS: BP 160/83; PULSE 89; RESP 16; TEMP 37.7; O2SAT 98
--- NOTE | 2024-09-07 11:51 | ED_ITS ---
HPI - URI/Sore Throat General Chief Complaint: Upper Respiratory Infection Stated Complaint: Upper Respiratory Symptoms Time Seen by Provider: 09/07/24 11:51 Source: patient, RN notes reviewed and old records reviewed Mode of arrival: ambulatory Limitations: no limitations History of Present Illness HPI Narrative: 68 year old male who presents to [facility] care with complaints of nonproductive cough, headache, fevers, and sinus drainage since Saturday. Patient states that he went to bank on Saturday and worker there was hacking and then he started with symptoms on Saturday. Patient reports that he has been taking Mucinex for his symptoms MD elicited complaint: fever, cough, rhinorrhea, nasal congestion and other (headache) Onset (ago): day(s) (3) Severity: moderate Able to tolerate fluids by mouth: No Treatments prior to arrival: other (Mucinex) Related Data Home Medications ?Medication ?Instructions ?Recorded ?Confirmed ?Last Taken ?Type warfarin 5 mg tablet 5 mg PO .QMTWTF 10/23/21 09/07/24 Unknown History warfarin 7.5 mg tablet (Coumadin) 7.5 mg PO .Weekends 10/23/21 09/07/24 Unknown History Allergies Allergy/AdvReac Type Severity Reaction Status Date / Time furosemide Allergy Unknown Unknown Verified 09/07/24 11:22 Review of Systems Review of Systems: CONSTITUTIONAL:Reports malaise, chills, sweats, or fever. EYES: Denies visual changes, redness, or discharge. ENT: Reports rhinorrhea, congestion, sinus pain,no otalgia and no sore throat. CARDIOVASCULAR: Denies chest pain, palpitations, or edema. RESPIRATORY: Reports dry cough.? Denies dyspnea. GASTROINTESTINAL: Denies abdominal pain, nausea, vomiting, diarrhea SKIN: Denies rash or itching. MUSCULOSKELETAL: Denies myalgia. NEUROLOGIC: Reports headache. All systems reviewed & are unremarkable except as noted in HPI and below PMFSH Past Medical History Medical History Chronic right shoulder pain Erectile dysfunction History of venous thromboembolism Dyslipidemia Essential (primary) hypertension Carpal tunnel syndrome of right wrist 1991 Pulmonary embolism x3 1984,1993, and 2002 Surgical History Surgical History S/P IVC filter 2002 History of carpal tunnel surgery right 1991 H/O arthroscopy of knee both knee meniscus repair - left(1984&1987), right(1985) History of shoulder surgery left rotator cuff repair - 08/2019 Family History Family History Father Family history of alcoholism Mother Cerebrovascular accident Social History Social History Social History: Patient is . He is an computer laboratory technician, retired from [employer] in 2023. Smoking status: Never smoker Second hand tobacco smoke exposure: No Alcohol intake: current Alcohol use details: consumes mixed drinks 1-2 times yearly Substance use: never Substance use type: does not use Lack of Transportation: No Lack of Food: Never True Current Housing: I Have Housing Concerned About Future Housing: No Difficulty Paying Gas/Electric Bills: No Difficulty Paying for Meds: No Currently Unemployed: No Education: Associate Degree Difficulty w/ Childcare or Family Care: No Living arrangements: with family Occupation/Education: retired Gender identity (if verbalized by the patient): Male Sexual Orientation (if Verbalized by the Patient): Straight or Heterosexual Agree to blood products: Yes Comments At time of signature, agree with nursing past medical, surgical, social and family history. There is no relevant family history pertinent to the presenting complaint Exam Narrative: GENERAL: Well-appearing, well-nourished, and in no acute distress. HEAD: Normocephalic EYES: PERRLA, conjunctivae clear ENT: Nares clear, turbinates edematous and erythematous, clear discharge, headache.. Mucous membranes moist. TM pearly higuera with dull light reflex bilaterally; no tragal tenderness. Oropharynx erythematous without lesions. Tonsils not enlarged and without exudate, no drooling, no hoarseness, no trismus, uvula midline.post nasal drainage noted NECK: Supple. No lymphadenopathy CHEST: Clear to auscultation, breath sounds equal. No wheezing, rhonchi, rales, or stridor. No respiratory distress, speaks in full sentences.SAO2 98% dry cough HEART: Regular rate and rhythm. No murmur heard. SKIN: Warm, dry, no rash. NEURO: Alert and oriented x3. PSYCH: Normal mood and affect Course Course Emergency Course: Patient is aware of diagnosis, understands and agrees to treatment plan.? Anticipatory guidance given.? Patient agrees to follow-up as directed and is aware of reasons to seek care at the emergency department. Portions of this record may have been created with voice recognition software Level of Care: Express Care Visit Vital Signs Vital signs: Vital Signs Temperature 37.7 C H 09/07/24 11:27 Pulse Rate 89 09/07/24 11:27 Respiratory Rate 16 09/07/24 11:27 Blood Pressure 160/83 H 09/07/24 11:27 Pulse Oximetry 98 09/07/24 11:27 Temperature 37.7 C H 09/07/24 11:27 Pulse Rate 89 09/07/24 11:27 Respiratory Rate 16 09/07/24 11:27 Blood Pressure 160/83 H 09/07/24 11:27 Pulse Oximetry 98 09/07/24 11:27 Reviewed MDM - URI/Sore Throat MDM Narrative Medical decision making narrative: Differential diagnosis considered: Blackwell virus, strep pharyngitis, allergic rhinitis, upper respiratory tract infection, sinusitis, rhinosinusitis, nasopharyngitis. viral pharyngitis, otitis media, otitis externa, pneumonia, bronchitis, viral cough syndrome, viral syndrome, and influenza.? Exam findings show no acute concerns or changes; patient is non-toxic appearing and is in no distress.? Patient is appropriate for outpatient treatment and follow-up. Differential Diagnosis Differential diagnosis: Likely upper respiratory infection, sinusitis, viral infection and other (COVID acute cough) Medical Records Attestation: I reviewed the patient's medical records. Lab Data Attestation: I reviewed the patient's lab results. Lab results narrative: Influenza A negative, Influenza B negative, COVID antigen negative. Labs: Lab Results 09/07/24 Range/Units 11:54 POC Influenza A Ag Negative (Negative) POC Influenza B Ag Negative (Negative) POC SARS CoV-2 Ag Negative (Negative) reviewed Critical Care Time Critical Care Time Critical Care Time: No Discharge Plan Discharge Clinical Impression: Upper respiratory infection Qualifiers: URI type: unspecified URI Qualified Code(s): J06.9 - Acute upper respiratory infection, unspecified Patient Disposition: Home, Self-Care Condition: Stable Instructions: Upper Respiratory Infection (ED) Additional Instructions: Increase fluids especially juices and water [id number] cough and cold medicine of your choice for your symptoms Zyrtec or Claritin or Huyen daily may include Coricidin brand decongestant Steroids as directed--take with food heat to the face 20-30 minutes 4-6 times a day for pain Salt water gargles, throat lozenges or throat sprays as desired Tylenol for any fevers or pain monitor your temperature every 4 hours Mucinex daily drink plenty of fluids while taking this medication If your symptoms persist, change or worsen significantly before you can contact your personal physician then please, without delay, go to the emergency department for further evaluation. Follow-up with PCP in 7-10 days or sooner if needed Follow up with PCP soon in regards to your blood pressure which is elevated above threshold for referral. Blood pressure above 120/80 may indicate pre- hypertension. 160/83 Patient Language: Armenian Prescriptions: New prednisone 20 mg tablet 20 mg PO BID Qty: 10 0RF No Action warfarin 5 mg tablet 5 mg PO .QMTWTF losartan-hydrochlorothiazide 100-25 mg tablet 1 tablet PO DAILY Qty: 90 1RF rosuvastatin 20 mg tablet 20 mg PO QHS Qty: 90 1RF sildenafil 50 mg tablet 50 mg PO DAILY PRN (Reason: take 1 or 2 tablets for sexual activity as needed) Qty: 30 0RF Rx Instructions: administer 30 minutes to 4 hours before activity warfarin [Coumadin] 7.5 mg tablet 7.5 mg PO .Weekends Follow-up/Referrals: Erick Clifford MD [Primary Care Provider] - Time of Disposition: 12:06 Quality Plato Coma Scale Eyes: Open Verbal: Oriented and Alert Motor: Follows Commands Plato Coma Total Score: 15
[2024-09-07 11:56] LABS: EDCOVIDSCREEN Negative (Negative); EDINFLUASCREEN Negative (Negative); EDINFLUBSCREEN Negative (Negative)
== END 2024-09-07 12:09 | disposition home or self-care (01) ==
PROVIDERS: Emergency Provider Registered Nurse; PCP Family Medicine
DX: J06.9 Acute upper respiratory infection, unspecified (principal); E78.49 Other hyperlipidemia; I10 Essential (primary) hypertension; Z86.711 Personal history of pulmonary embolism; Z20.822 Contact with and (suspected) exposure to COVID-19; Z79.01 Long term (current) use of anticoagulants
CPT/HCPCS: 87426; 87804; 99213; G0463